=== PATIENT | female | born 1965 | race African-American/Black ===

== ENCOUNTER 2019-02-16 17:29 | Emergency (ER) | payer OTHER ==
[~2019-02-16] VITALS: Ht 149.9 cm; Wt 136.1 kg
[~2019-02-16 17:29] MED LIST: AMBIEN 5 MG TABL5 M1 PO; DULCOLAX5 MG PO; FLONASE16 GM NASAL; IRON325 PO; KLONOPIN PO; OXYCODONE HCL30 MG PO; PAROXETINE HCL40 MG PO; PROTONIX40 M2 PO; SEREVENT DISKU50 MCG INH; VENTOLIN HFA INH8 GM INH; ZOFRAN8 MG PO
[2019-02-16 19:03] LABS: ANION GAP 11 mmol/L (7-16); BUN 12 mg/dL (7-18); CALCIUM 9.6 mg/dL (8.5-10.1); CHLORIDE 105 mmol/L (98-107); CO2 26 mmol/L (21-32); CREATININE 0.8 mg/dL (0.6-1.0); GLUCOSE 129 mg/dL (74-106); POTASSIUM 3.3 mmol/L (3.5-5.1); SODIUM 142 mmol/L (136-145)
[2019-02-16] MEDS ORDERED: ZANTAC 150MG T150 MG PO (19:10)
[2019-02-16] MEDS ORDERED: ELIQUIS5 MG PO (19:11)
[2019-02-16] MEDS ORDERED: FLECAINIDE ACET50 M1 PO (19:11)
[2019-02-16 19:12] LABS: TROPONIN-I <0.06 ng/mL (<0.06)
[2019-02-16] MEDS ORDERED: CARDIZEM CD120 MG PO (19:12)
[2019-02-16] MEDS ORDERED: PREDNISONE 10 M10 MG PO (19:13)
[2019-02-16] MEDS ORDERED: VYVANSE10 MG PO (19:17)
[2019-02-16] MEDS ORDERED: LASIX 40 MG TAB40 M2 PO (19:31)
[2019-02-16] MEDS ORDERED: ERGOCALCIF50000 UNIT PO (19:32)
[2019-02-16] MEDS ORDERED: NEURONTIN 300300 M1 PO (19:33)
[2019-02-16] MEDS ORDERED: SINGULAIR 10 MG10 M1 PO (19:34)
[2019-02-16] MEDS ORDERED: IPRATROPIUM BRO30 ML NASAL (19:35)
[2019-02-16 19:56] LABS: ABSOLUTE NEUTROPHILS 10.8 thou/uL (1.4-8.2); BASOPHILS 0.3 % (0.0-2.0); EOSINOPHILS 0.1 % (0.0-3.0); HEMATOCRIT 36.8 % (37.0-47.0); HEMOGLOBIN 11.9 gm/dL (12.0-15.0); LYMPHOCYTES 10.8 % (24.0-44.0); MCH 26.4 pg (26.0-34.0); MCHC 32.4 g/dL (28.0-37.0); MCV 81.5 fL (80.0-100.0); MONOCYTES 1.1 % (1.0-8.0); PLATELET COUNT 339 thou/uL (150-400); POLYS 87.7 % (36.0-66.0); RBC 4.51 mil/uL (4.20-5.00); RDW 15.7 % (10.5-14.5); WBC 12.4 thou/uL (4.0-11.0)
[2019-02-16 20:13] LABS: APTT 26.1 Seconds (24.5-32.8); D-DIMER 0.37 ug/mLFEU (0.19-0.50); PROTIME 10.1 Seconds (9.3-11.4)
[2019-02-16] MEDS ORDERED: LASIX 20 MG TAB20 MG PO (20:20)
[2019-02-16] MEDS ORDERED: POTASSIUM20 PO (20:20)
[2019-02-16 20:49] VITALS: BP 144/94
--- NOTE | 2019-02-20 17:51 | EKG ---
[place] [address] [facility] [place] [address] ELECTROCARDIOGRAM REPORT Name: QUINTIN SANCHEZ Room #: [facility]#: [id number] ������������������ Admission: 02/16/19 ������������������ Attend Phys: Discharge: 02/16/19 ������������������ Date of : 69 Report #: [id number] ����������������������������������������������������������������� [id number] THIS REPORT FOR: //name// [facility] ED Test Date: 2019-02-16 Test Time: 17:52:35 Pat Name: QUINTIN SANCHEZ Department: Room: Gender: F [employer] Induction: : 1965 Requested By: Tab Lord Order Number: [id number] MD: Fortino Calles Measurements Intervals Strong Rate: 87 P: 59 [place]: 179 QRS: 26 QRSD: 100 T: -30 QT: 453 QTc: 545 Interpretive Statements Sinus rhythm Nonspecific ST and T wave abnormality Prolonged QT interval Baseline wander in lead(s) V5 No previous ECG available for comparison Electronically Signed On 02-20-2019 17:50:49 CDT by Fortino Calles [email or web address] ��������������������������������������������� <ELECTRONICALLY SIGNED> ���������������������������������������� By: Fortino Calles MD, [facility] ��������������������������������������������� 02/20/191749 51 51 Fortino Calles MD, FACC /EPI
== END 2019-02-16 20:51 | disposition home or self-care (01) ==
LOC: ER 17:29
PROVIDERS: Emergency Medicine; Physician Assistant
DX: E87.6 Hypokalemia (principal); D64.9 Anemia, unspecified; R06.02 Shortness of breath; R60.9 Edema, unspecified; F32.9 Major depressive disorder, single episode, unspecified; F41.9 Anxiety disorder, unspecified; K21.9 Gastro-esophageal reflux disease without esophagitis; I10 Essential (primary) hypertension; J45.909 Unspecified asthma, uncomplicated; M19.90 Unspecified osteoarthritis, unspecified site; Z86.2 Personal history of diseases of the blood and blood-forming organs and certain disorders involving the immune mechanism; Z88.1 Allergy status to other antibiotic agents; Z88.8 Allergy status to other drugs, medicaments and biological substances; Z88.6 Allergy status to analgesic agent; Z90.710 Acquired absence of both cervix and uterus; Z90.49 Acquired absence of other specified parts of digestive tract; Z98.890 Other specified postprocedural states